=== PATIENT | male | born 1985 | race African-American/Black ===

== ENCOUNTER 2025-05-02 00:30 | Emergency (ER) | payer OTHER ==
[~2025-05-02] VITALS: Ht 177.8 cm; Wt 69.0 kg
[2025-05-02 00:37] VITALS: BP 143/95; PULSE 88; RESP 16; TEMP 36.7; O2SAT 100
[2025-05-02] MEDS: BACITRACIN ZINC OINT UDPKT TOP ONE (01:30)
[2025-05-02] MEDS: TETANUS, DIPHTHERIA, PERTUSSIS VAC/PF 0.5ML (>10YR OLD) IM ONE (01:30)
[2025-05-02] MEDS ORDERED: LIDOCAINE HCL/PF 1% 10 MG/ML 5ML VIAL INFIL ONE (01:30)
[2025-05-02] MEDS: ACETAMINOPHEN 500MG TABLET PO ONE (01:30)
[2025-05-02] MEDS ORDERED: BACITRACIN ZINC OINT UDPKT TOP NR (04:15)
[2025-05-02] MEDS ORDERED: LIDOCAINE HCL/PF 1% 10 MG/ML 5ML VIAL INFIL NR (04:15)
== END 2025-05-02 04:55 | disposition home or self-care (01) ==
LOC: ER 00:30
DX: S01.81XA Laceration without foreign body of other part of head, initial encounter (principal); W01.0XXA Fall on same level from slipping, tripping and stumbling without subsequent striking against object, initial encounter; Y93.89 Activity, other specified; Y92.89 Other specified places as the place of occurrence of the external cause; Y99.8 Other external cause status
CPT/HCPCS: 70450; 70486; 90715; 12013; 90471; 99285; J2003; Z7610 ×2